=== PATIENT | male | born 1965 | race Caucasian/White ===

== ENCOUNTER → 2020-04-17 | Outpatient (CLI) | payer MEDICARE, OTHER ==
[~2020-04-17] MED LIST: ATOR20TA86 PO; CLOZ100T32 PO; DIPH25 PO; DIVA-80 PO; DOCU-350 PO; FLUP5TAB15 PO; IBUP-2071 PO; LORA10TA7 PO; METF-960 PO; METH-659 PO; METO-558 PO; MIRALAX PO; MONT-35 PO; PANT-31 PO; TAMS-13 PO; TRIH2TAB3 PO; TRIL8 PO
== END | disposition home or self-care (01) ==
LOC: RADMN 10:00
PROVIDERS: ATTEND Podiatrist Foot & Ankle Surgery
DX: M79.672 Pain in left foot (principal)

== ENCOUNTER → 2020-06-12 | Outpatient (CLI) | payer MEDICARE, OTHER | END | disposition home or self-care (01) | LOC: RADMN 11:22 | PROVIDERS: ATTEND Podiatrist Foot & Ankle Surgery | DX: S92.512A Displaced fracture of proximal phalanx of left lesser toe(s), initial encounter for closed fracture (principal); X58.XXXA Exposure to other specified factors, initial encounter; Y93.89 Activity, other specified; Y92.89 Other specified places as the place of occurrence of the external cause; Y99.8 Other external cause status ==

== ENCOUNTER → 2020-07-26 | Outpatient (CLI) | payer MEDICARE, OTHER | END | disposition home or self-care (01) | LOC: RADMN 15:09 | PROVIDERS: ATTEND Podiatrist Foot & Ankle Surgery | DX: S92.912D Unspecified fracture of left toe(s), subsequent encounter for fracture with routine healing (principal); X58.XXXD Exposure to other specified factors, subsequent encounter | CPT/HCPCS: 73660-TC ==

== ENCOUNTER → 2020-08-22 | Outpatient (CLI) | payer MEDICARE, OTHER | END | disposition home or self-care (01) | LOC: RADMN 11:34 | PROVIDERS: ATTEND Podiatrist Foot & Ankle Surgery | DX: S82.892A Other fracture of left lower leg, initial encounter for closed fracture (principal); X58.XXXA Exposure to other specified factors, initial encounter; Y93.89 Activity, other specified; Y92.89 Other specified places as the place of occurrence of the external cause; Y99.8 Other external cause status | CPT/HCPCS: 73660-TC ==

== ENCOUNTER → 2020-10-10 | Outpatient (CLI) | payer MEDICARE, OTHER | END | disposition home or self-care (01) | LOC: RADMN 11:11 | PROVIDERS: ATTEND Podiatrist Foot & Ankle Surgery | DX: S99.202A Unspecified physeal fracture of phalanx of left toe, initial encounter for closed fracture (principal); S92.912A Unspecified fracture of left toe(s), initial encounter for closed fracture; M79.672 Pain in left foot; X58.XXXA Exposure to other specified factors, initial encounter; Y93.89 Activity, other specified; Y92.89 Other specified places as the place of occurrence of the external cause; Y99.8 Other external cause status ==

== ENCOUNTER → 2020-12-22 | Outpatient (CLI) | payer MEDICARE, OTHER ==
[~2020-12-22] MED LIST changes: +METF-1211 PO; -METF-960 PO
== END | disposition home or self-care (01) ==
LOC: RADMN 09:03
PROVIDERS: ATTEND Podiatrist Foot & Ankle Surgery
DX: S92.592A Other fracture of left lesser toe(s), initial encounter for closed fracture (principal); M19.072 Primary osteoarthritis, left ankle and foot; X58.XXXA Exposure to other specified factors, initial encounter; Y93.89 Activity, other specified; Y92.89 Other specified places as the place of occurrence of the external cause; Y99.8 Other external cause status

== ENCOUNTER → 2021-02-02 | Outpatient (CLI) | payer MEDICARE, OTHER | END | disposition home or self-care (01) | LOC: RADMN 09:47 | PROVIDERS: ATTEND Podiatrist Foot & Ankle Surgery | DX: S92.912 Unspecified fracture of left toe(s) (principal); S92.322S Displaced fracture of second metatarsal bone, left foot, sequela; X58.XXXS Exposure to other specified factors, sequela ==

== ENCOUNTER → 2021-05-04 | Outpatient (CLI) | payer MEDICARE, OTHER | END | disposition home or self-care (01) | LOC: RADMN 09:55 | PROVIDERS: ATTEND Podiatrist Foot & Ankle Surgery | DX: M79.675 Pain in left toe(s) (principal) ==

== ENCOUNTER → 2021-09-14 | Outpatient (CLI) | payer MEDICARE, OTHER ==
[~2021-09-14] MED LIST changes: -FLUP5TAB15 PO; +FLUP5TAB31 PO
== END | disposition home or self-care (01) ==
LOC: RADMN 10:16
PROVIDERS: ATTEND Podiatrist Foot & Ankle Surgery
DX: M25.861 Other specified joint disorders, right knee (principal); M79.671 Pain in right foot
CPT/HCPCS: 73630-TC